=== PATIENT | male | born 1970 | race Caucasian/White ===

== ENCOUNTER → 2018-03-18 08:06 | Outpatient (REF) | payer OTHER, SELFPAY ==
[2018-03-18 09:41] LABS: Urine N gonorrhoeae NOT DETECTED
[2018-03-18 10:29] LABS: Urine Chlamydia NOT DETECTED
== END ==
LOC: LAB 08:06
PROVIDERS: PCP Family Medicine; Visit Provider Physician Assistant
DX: R52 Pain, unspecified (principal)
CPT/HCPCS: 87491; 87591

== ENCOUNTER → 2018-03-23 08:46 | Outpatient (CLI) | payer OTHER, SELFPAY ==
[2018-03-26 12:49] LABS: Fecal Immunochemical Test NOT DETECTED
== END ==
PROVIDERS: PCP Student in an Organized Health Care Education/Training Program; Visit Provider Nurse Practitioner Family
DX: Z12.11 Encounter for screening for malignant neoplasm of colon (principal)
CPT/HCPCS: 82274

== ENCOUNTER 2019-06-21 14:52 | Inpatient (IN) | payer OTHER, SELFPAY ==
[2019-06-21] VITALS (13 sets, daily range): BP systolic 84–134; BP diastolic 37–98; PULSE 65–167; RESP 10–40; TEMP 36.3–37; O2SAT 93–99; BMI 27.3; BMI 27.2
--- NOTE | 2019-06-21 15:02 | DI.RAD.S_ITS ---
PROCEDURE: XR CHEST 1V INDICATIONS: chest pain TECHNIQUE: One view of the chest was acquired. COMPARISON: None. FINDINGS: Surgical changes and devices: None. Lungs and pleura: The vascular markings within the perihilar regions are prominent with interstitial prominence, as well. No effusion or pneumothorax is evident. No definite area of pulmonary consolidation is appreciated. However, there may be mild consolidation at the medial right lung base. Mediastinum: Mediastinal contours appear normal. Heart size is enlarged. Bones and chest wall: No suspicious bony lesions. Overlying soft tissues appear unremarkable. IMPRESSION: 1. Cardiomegaly with associated vascular congestion/developing pulmonary edema. Please correlate clinically. 2. Density at the medial right lung base probably represents atelectasis or scarring. However, superimposed pneumonia may be present. Dictated by: James Lewis M.D. on 06/21/2019 at 14:20 Approved by: James Lewis M.D. on 06/21/2019 at 14:22
[2019-06-21] MEDS: SODIUM CHLORIDE 0.9% 1,000 ML 150 ML IV (15:12)
[2019-06-21] MEDS: ASPIRIN 81 MG CHEW TAB 324 MG PO (15:12)
[2019-06-21 15:14] LABS: Add Manual Diff / Slide Review NO; Basophils Absolute Auto 0 /uL (0-100); Basophils Percent Auto 0.5 % (0-2); Eosinophils Absolute Auto 100 /uL (0-450); Eosinophils Percent Auto 1.2 % (2-4); Hematocrit 47.4 % (41-53); Hemoglobin 16.1 g/dL (13.5-17.5); Lymphocytes Absolute Auto 2000 /uL (1100-4500); Lymphocytes Percent Auto 22.5 % (25-40); Mean Corpuscular HGB Conc 33.9 % (30-36); Mean Corpuscular Hemoglobin 30.6 PG (26-34); Mean Corpuscular Volume 90.3 fL (80-100); Monocytes Absolute Auto 600 /uL (0-900); Monocytes Percent Auto 6.4 % (3-14); Neutrophils Absolute Auto 6200 /uL (1500-7000); Neutrophils Percent Auto 69.4 % (50-75); Platelet Count 203 X10^3/uL (150-400); Red Blood Cell Count 5.25 X10^6/uL (4.5-5.9); Red Cell Distribution Width 13.4 % (11.6-14.8)
[2019-06-21] MEDS: dilTIAZem 5 MG/ML SDV 10 MG IV (15:14)
[2019-06-21 15:28] LABS: Alanine Aminotransferase 50 IU/L (<50); Albumin 4.6 g/dL (3.5-5.0); Albumin Globulin Ratio 1.9 (1.0-2.8); Alkaline Phosphatase 75 U/L (38-126); Aspartate Aminotransferase 35 IU/L (17-59); BUN Creatinine Ratio 16.7 (6-22); Blood Urea Nitrogen 20 mg/dL (9-20); Calcium 9.5 mg/dL (8.4-10.2); Carbon Dioxide 26 mmol/L (22-32); Chloride 105 mmol/L (98-107); Creatine Kinase 72 U/L (55-170); Estimated Glomerular Filt Rate > 60.0 mL/min (>60); Globulin 2.4 g/dL (1.7-4.1); Glucose 101 mg/dL (70-100); HEMOLYSIS < 15 (0-50); Lipase 76 U/L (23-300); Potassium 4.1 mmol/L (3.4-5.1); Sodium 140 mmol/L (137-145)
[2019-06-21 15:30] LABS: D Dimer 618 ng/mL (<230)
[2019-06-21 15:33] LABS: B Type Natriuretic Peptide 253 (<100)
--- NOTE | 2019-06-21 15:35 | DI.CT.S_ITS ---
PROCEDURE: CT ANGIO CHEST PE PROTOCOL INDICATIONS: CP, SOB, critical DDimer TECHNIQUE: After the administration of intravenous contrast, 2 mm thick sections acquired from the pulmonary apices to the posterior costophrenic angles. 3-dimensional maximum intensity projection (MIP) coronal and sagittal reformats were then acquired through the thorax. For radiation dose reduction, the following was used: automated exposure control, adjustment of mA and/or kV according to patient size. COMPARISON: [facility], CR, XR CHEST 1V, 06/21/2019, 15:08. FINDINGS: Image quality: Diagnostic. Pulmonary arteries: Pulmonary arteries are normal in size, and demonstrate no intraluminal filling defects to suggest central pulmonary embolism. Lungs and pleura: Small moderate-sized bilateral pleural effusions are identified (right greater than left). Mild associated bibasilar atelectasis is identified. No large area of pulmonary consolidation is evident. There is mild atelectasis evident within the medial aspect of the right middle lobe adjacent to the right heart border. There also is probable atelectasis within the right infrahilar region. Interlobular septal prominence is identified. No lung masses are present. No definite pulmonary nodules are identified. Mediastinum: Heart size is mildly enlarged, without pericardial effusion. Note is made of contrast refluxing into the inferior vena cava and subsequently the hepatic veins. No mediastinal or hilar adenopathy. Thoracic aorta is normal in caliber and enhancement. Esophagus is normal in caliber, without hiatal hernia. Bones and chest wall: No suspicious bony lesions. Ribs and thoracic spine appear intact throughout. Thyroid gland is not enlarged or adequately evaluated. No axillary or supraclavicular adenopathy. Abdomen: The included portions of the upper abdomen demonstrates that the wall of the gallbladder to be moderately thickened, which is not well characterized on this study. A small amount of upper abdominal ascites is noted. Otherwise, the included portions of the upper abdomen are unremarkable. IMPRESSION: 1. No evidence of pulmonary emboli. 2. Cardiomegaly with associated vascular congestion and small to moderate size bilateral pleural effusions is most suggestive of congestive heart failure/pulmonary edema. Please correlate clinically. 3. Gallbladder wall thickening probably is related to heart failure. Chronic liver disease or acute cholecystitis could also have this appearance. Please correlate clinically. 4. Mild upper abdominal ascites is of uncertain origin. Dictated by: James Lewis M.D. on 06/21/2019 at 15:02 Approved by: James Lewis M.D. on 06/21/2019 at 15:06
[2019-06-21 16:01] LABS: Troponin I 0.201 ng/mL (0.01-0.034)
--- NOTE | 2019-06-21 16:36 | ED.ARRPALP ---
HPI - Arrhythmia/Palpitations General Chief Complaint: Arrhythmia/Palpitations Stated Complaint: fatigue shortness of breath and he has A fib Time Seen by Provider: 06/21/19 14:55 Source: patient Mode of arrival: Ambulatory Limitations: no limitations History of Present Illness HPI narrative: 48-year-old male nonsmoker presents from the walk-in clinic for evaluation of 2-3 weeks of increasing shortness of breath and palpitations. They found him to be in a rapid AFib at which point he was sent here. He denies any history of the same. His shortness of breath is worse with exertion and improves with rest. He is not dizzy nor weak or lightheaded. He denies any nausea, vomiting or diarrhea. He denies any change in diet or medications. MD complaint: rapid heart beat, skipped beats, irregular heart beat and atrial fibrillation Onset (ago): week(s) Duration: constant Severity: moderate Associated symptoms: shortness of breath Related Data Home Medications Medication Instructions Recorded Confirmed No Known Home Medications 06/21/19 06/21/19 Allergies Allergy/AdvReac Type Severity Reaction Status Date / Time No Known Drug Allergies Allergy Verified 06/21/19 15:07 Review of Systems Constitutional Constitutional: Denies chills, Denies fatigue, Denies fever(s), Denies frequent falls, Denies lethargy and Denies weakness Eyes Eyes: Denies change in vision, Denies eye discharge, Denies irritation and Denies loss of vision ENT Ears, Nose, Mouth, and Throat: Denies change in voice, Denies dizziness, Denies neck pain, Denies sore throat and Denies throat swelling Cardiovascular Cardiovascular: Reports irregular heart rhythm, Denies lightheadedness, Reports palpitations, Reports dyspnea, Reports dyspnea on exertion and Denies orthopnea Respiratory Respiratory: Denies cough, Reports dyspnea, Reports dyspnea on exertion and Denies wheezing Gastrointestinal Gastrointestinal: Denies abdominal pain, Denies change in bowel habits, Denies diarrhea, Denies nausea and Denies vomiting Genitourinary Genitourinary: Denies hematuria, Denies flank pain, Denies urinary incontinence and Denies urinary urgency Musculoskeletal Musculoskeletal: Denies back pain, Denies muscle weakness, Denies neck pain, Denies numbness and Denies tingling Integumentary/Breasts Skin/Breast: Denies pruritus, Denies erythema, Denies rash and Denies wounds Neurologic Neurologic: Denies behavioral changes, Denies confusion, Denies dizziness, Denies frequent falls, Denies loss of vision, Denies numbness, Denies tingling and Denies weakness Psychiatric Psychiatric: Denies anxiety, Denies behavioral changes, Denies confusion, Denies depression, Denies homicidal ideation and Denies suicidal ideation Endocrine Endocrine: Denies fatigue, Denies flushing and Reports palpitations Hematologic/Lymphatic Hematologic/Lymphatic: Denies easy bruising Allergic/Immunologic Allergic/Immunologic: Denies urticaria, Denies throat swelling and Denies wheezing Patient History Social History Smoking Status: Never smoker second hand exposure: No alcohol intake: never substance use type: does not use Smoking Status: Never smoker Exam Narrative Exam Narrative: GENERAL: [40] year old patient appears stated age. Well-nourished, well-developed patient, in mild distress. HEAD: Atraumatic. Normocephalic. EYES: Pupils equal round and reactive. Extraocular motions intact. No scleral icterus. No injection or drainage. ENT: Nose without bleeding, purulent drainage. Throat without erythema, tonsillar hypertrophy or exudate. Airway patent. NECK: Trachea midline. Non tender CARDIOVASCULAR: Tachycardic and irregular RESPIRATORY: Faint crackles bilateral bases GASTROINTESTINAL: Abdomen soft, non-tender, nondistended. EXTREMITIES: No edema or joint tenderness. BACK: Nontender without deformity or crepitance. No flank tenderness. NEURO: AOx3. SKIN: No rash or erythema of visible areas Initial Vital Signs Initial Vital Signs: Vital Signs Temperature 98.6 F 06/21/19 15:02 Pulse Rate 153 H 06/21/19 15:02 Respiratory Rate 34 H 06/21/19 15:02 Blood Pressure 121/98 H 06/21/19 15:02 Pulse Oximetry 99 06/21/19 15:02 Course Course Course Narrative: Case discussed with cardiology. We sure the opinion that elevated troponin is likely a consequence of demand ischemia. Orders Ordered: ED Orders 06/21/19 15:02 XR chest 1V Stat 06/21/19 15:06 B Type Natriuretic Peptide Stat Complete Blood Count AUTO DIFF Stat Comprehensive Metabolic Panel Stat D Dimer Stat Lipase Stat Troponin & CK Cardiac Panel Stat 06/21/19 15:35 CT angio chest PE protocol Stat Sodium Chloride (Normal Saline 0.9%) 1,000 mls @ 150 mls/hr IV CONT IDALIA Last Infusion: 06/21/19 17:58 Dose: 0 mls/hr Documented by: Admin: 06/21/19 15:12 Dose: 150 mls/hr Documented by: LAUREN Discontinued Medications Aspirin (Aspirin Chew) 324 mg PO NOW ONE Stop: 06/21/19 15:02 Last Admin: 06/21/19 15:12 Dose: 324 mg Documented by: LAUREN Diltiazem HCl (Cardizem) 10 mg IV NOW ONE Stop: 06/21/19 15:08 Last Admin: 06/21/19 15:14 Dose: 10 mg Documented by: LAUREN Lidocaine HCl 6.1 ml/ Sodium (Chloride) 56.1 mls @ 336.6 mls/hr IV NOW ONE Stop: 06/21/19 16:40 Last Admin: 06/21/19 17:05 Dose: Not Given Documented by: KBROTEM Metoprolol Succinate (Toprol Xl) 25 mg PO NOW ONE Stop: 06/21/19 16:38 Last Admin: 06/21/19 16:51 Dose: 25 mg Documented by: FUAD Vital Signs Vital signs: Vital Signs - 8 hr 06/21/19 15:02 06/21/19 15:14 06/21/19 15:53 Temperature 98.6 F Pulse Rate 153 H 167 H 65 Respiratory Rate 34 H 10 L Blood Pressure 121/98 H 121/98 H Blood Pressure [Right Arm] 134/90 Pulse Oximetry 99 95 06/21/19 16:37 06/21/19 16:51 Temperature Pulse Rate 152 H 161 H Respiratory Rate 22 Blood Pressure 121/89 Blood Pressure [Right Arm] 128/91 H Pulse Oximetry 95 MDM - Arrhythmia/Palpitations Lab Data Result diagrams: 06/21/19 15:06 06/21/19 15:06 Labs: Lab Results 06/21/19 06/21/19 06/21/19 Range/Units 15:06 15:06 15:06 WBC 9.0 (4.5-11.0) X10^3/uL RBC 5.25 (4.5-5.9) X10^6/uL Hgb 16.1 (13.5-17.5) g/dL Hct 47.4 (41-53) % MCV 90.3 (80-100) fL MCH 30.6 (26-34) PG MCHC 33.9 (30-36) % RDW 13.4 (11.6-14.8) % Plt Count 203 (150-400) X10^3/uL Neut % (Auto) 69.4 (50-75) % Lymph % (Auto) 22.5 L (25-40) % [place] % (Auto) 6.4 (3-14) % Eos % (Auto) 1.2 L (2-4) % Baso % (Auto) 0.5 (0-2) % Neut # (Auto) 6200 (5771-2960) /uL Lymph # (Auto) 2000 (7372-5995) /uL [place] # (Auto) 600 (0-900) /uL Eos # (Auto) 100 (0-450) /uL Baso # (Auto) 0 (0-100) /uL D-Dimer 618 H (<230) ng/mL Sodium (137-145) mmol/L Potassium (3.4-5.1) mmol/L Chloride (98-107) mmol/L Carbon Dioxide (22-32) mmol/L BUN (9-20) mg/dL Creatinine (0.66-1.25) mg/dL Estimated GFR (>60) mL/min BUN/Creatinine Ratio (6-22) Glucose (70-100) mg/dL Calcium (8.4-10.2) mg/dL Total Bilirubin (0.2-1.3) mg/dL AST (17-59) IU/L ALT (<50) IU/L Alkaline Phosphatase (38-126) U/L Total Creatine Kinase (55-170) U/L CK-MB (CK-2) CK-MB (CK-2) Rel Index Troponin I (0.01-0.034) ng/mL B-Natriuretic Peptide 253 H (<100) Total Protein (6.3-8.2) g/dL Albumin (3.5-5.0) g/dL Globulin (1.7-4.1) g/dL Albumin/Globulin Ratio (1.0-2.8) Lipase (23-300) U/L 06/21/19 Range/Units 15:06 WBC (4.5-11.0) X10^3/uL RBC (4.5-5.9) X10^6/uL Hgb (13.5-17.5) g/dL Hct (41-53) % MCV (80-100) fL MCH (26-34) PG MCHC (30-36) % RDW (11.6-14.8) % Plt Count (150-400) X10^3/uL Neut % (Auto) (50-75) % Lymph % (Auto) (25-40) % [place] % (Auto) (3-14) % Eos % (Auto) (2-4) % Baso % (Auto) (0-2) % Neut # (Auto) (4168-7880) /uL Lymph # (Auto) (0449-5168) /uL [place] # (Auto) (0-900) /uL Eos # (Auto) (0-450) /uL Baso # (Auto) (0-100) /uL D-Dimer (<230) ng/mL Sodium 140 (137-145) mmol/L Potassium 4.1 (3.4-5.1) mmol/L Chloride 105 (98-107) mmol/L Carbon Dioxide 26 (22-32) mmol/L BUN 20 (9-20) mg/dL Creatinine 1.20 (0.66-1.25) mg/dL Estimated GFR > 60.0 (>60) mL/min BUN/Creatinine Ratio 16.7 (6-22) Glucose 101 H (70-100) mg/dL Calcium 9.5 (8.4-10.2) mg/dL Total Bilirubin 1.0 (0.2-1.3) mg/dL AST 35 (17-59) IU/L ALT 50 H (<50) IU/L Alkaline Phosphatase 75 (38-126) U/L Total Creatine Kinase 72 (55-170) U/L CK-MB (CK-2) TNP CK-MB (CK-2) Rel Index TNP Troponin I 0.201 H* (0.01-0.034) ng/mL B-Natriuretic Peptide (<100) Total Protein 7.0 (6.3-8.2) g/dL Albumin 4.6 (3.5-5.0) g/dL Globulin 2.4 (1.7-4.1) g/dL Albumin/Globulin Ratio 1.9 (1.0-2.8) Lipase 76 (23-300) U/L Imaging Data CT scan - chest: Radiologist's Impresson: Chart [facility] Diagn[facility] DATE TYPE STATUS AUTHOR Hx 06/21/19 15:35 Joshua,James 06/21/19 15:02 James Lewis Robert L Jr 48, M0 1970 ADM [place], Main ED R04 172.72cm 81.3kg BMI: 27.3kg/m? Search Chart No Data to Display ONSET 01/13/16 01/13/16 01/13/16 01/13/16 07/06/16 Today 18:03 Castro Bowers Jr 48 M 1970 [place] [address] CT Scan Report Signed Patient: Castor Bowers Jr#: [id number] : 1970Acct:[id number] Age/Sex: 48 / MDate of Service: 06/21/19 Loc: ED Accession Number: [id number] Procedure: CT angio chest PE protocol Ordering Provider: Satish Garber D.O. PROCEDURE: CT ANGIO CHEST PE PROTOCOL INDICATIONS: CP, SOB, critical DDimer TECHNIQUE: After the administration of intravenous contrast, 2 mm thick sections acquired from the pulmonary apices to the posterior costophrenic angles. 3-dimensional maximum intensity projection (MIP) coronal and sagittal reformats were then acquired through the thorax. For radiation dose reduction, the following was used: automated exposure control, adjustment of mA and/or kV according to patient size. COMPARISON: [facility], CR, XR CHEST 1V, 06/21/2019, 15:08. FINDINGS: Image quality: Diagnostic. Pulmonary arteries: Pulmonary arteries are normal in size, and demonstrate no intraluminal filling defects to suggest central pulmonary embolism. Lungs and pleura: Small moderate-sized bilateral pleural effusions are identified (right greater than left). Mild associated bibasilar atelectasis is identified. No large area of pulmonary consolidation is evident. There is mild atelectasis evident within the medial aspect of the right middle lobe adjacent to the right heart border. There also is probable atelectasis within the right infrahilar region. Interlobular septal prominence is identified. No lung masses are present. No definite pulmonary nodules are identified. Mediastinum: Heart size is mildly enlarged, without pericardial effusion. Note is made of contrast refluxing into the inferior vena cava and subsequently the hepatic veins. No mediastinal or hilar adenopathy. Thoracic aorta is normal in caliber and enhancement. Esophagus is normal in caliber, without hiatal hernia. Bones and chest wall: No suspicious bony lesions. Ribs and thoracic spine appear intact throughout. Thyroid gland is not enlarged or adequately evaluated. No axillary or supraclavicular adenopathy. Abdomen: The included portions of the upper abdomen demonstrates that the wall of the gallbladder to be moderately thickened, which is not well characterized on this study. A small amount of upper abdominal ascites is noted. Otherwise, the included portions of the upper abdomen are unremarkable. IMPRESSION: 1. No evidence of pulmonary emboli. 2. Cardiomegaly with associated vascular congestion and small to moderate size bilateral pleural effusions is most suggestive of congestive heart failure/pulmonary edema. Please correlate clinically. 3. Gallbladder wall thickening probably is related to heart failure. Chronic liver disease or acute cholecystitis could also have this appearance. Please correlate clinically. 4. Mild upper abdominal ascites is of uncertain origin. Dictated by: James Lewis M.D. on 06/21/2019 at 15:02 MDM Narrative Medical decision making narrative: Patient has had palpitations and shortness breath for at least 3 weeks. It turns out he is in a rapid AFib and presumably has been for that duration of time. He is not a candidate for electrocardioversion as he is not in extremities, has no chest pain, ischemic changes on the EKG and duration of symptoms is too long. Initially he was given Cardizem and had a very minimal change to his rate. With the elevated D-dimer patient had a CT angiogram which notes no PE but does show some fluids and suggestion of pulmonary edema. For this reason cardiology was contacted prior to administration of a beta-kristen. They recommended either beta-kristen or amiodarone. I have contacted the hospitalist whom would prefer beta-kristen at this point time. Patient will be hospitalized for further stabilization and evaluation of his condition Discharge Plan Departure Patient Disposition: Admitted As Inpatient Clinical Impression: Atrial fibrillation with rapid ventricular response Admit Date/Time: 06/21/19 16:58 Admit Provider: Karen Jarrett
[2019-06-21] MEDS: METOPROLOL ER 25 MG TABLET PO (16:51)
--- NOTE | 2019-06-21 17:33 | PC.NURSE ---
report called to Adelia ICU nurse, pt ready for transport
--- NOTE | 2019-06-21 18:23 | P.HP_ITS ---
History of Present Illness History of Present Illness Date Patient Seen: 06/21/19 Chief complaint: fatigue shortness of breath and he has AFIB Narrative: The patient is a 48-year-old male who presents with chest pain, palpitations, shortness of breath. Patient states the symptoms started about 3 weeks ago. He describes chest pressure, palpitations, and shortness of breath both at rest with activity and when lying flat. In addition he has noted increased abdominal girth. He denies any lower extremity edema. He describes pressure in his chest but no radiation. He has had no fever chills or cough. He has had no prior history of atrial arrhythmia. Patient was found to be in rapid atrial fibrillation. He was given 1 dose of diltiazem with minimal response. He was then given 25 mg of metoprolol and plans were made for him to be admitted to the hospital. The patient did have a CT angio given his new onset atrial fibrillation. CT angio showed bilateral small pleural effusions, cardiomegaly, but no evidence of pulmonary embolus. Patient was found to have an elevated troponin at 0.21. The case was discussed with cardiology Dr. Garcia who agreed this was likely rate related. The patient's EKG showed atrial fibrillation with minimal ST T wave abnormalities. Patient is admitted to the hospital for definitive medical treatment. 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 (01/13/16) Gastroesophageal reflux disease without esophagitis (01/13/16) Family & Social History Family History (Updated 06/21/19 @ 18:30 by Karen Jarrett MD) Grandfather Myocardial infarction Father Myocardial infarction Safety & Behavioral: Feels Safe in Current Yes Environment Been Physically Hurt or No Threatened By a Person Tobacco & Substance use: Smoking Status Never smoker alcohol intake never Meds Home Medications and Allergies Home Medications Medication Instructions Recorded Confirmed Type No Known Home Medications 06/21/19 06/21/19 History Allergies Allergy/AdvReac Type Severity Reaction Status Date / Time No Known Drug Allergies Allergy Verified 06/21/19 15:07 Review of Systems Review of Systems ROS Unobtainable: All systems reviewed & are unremarkable except as noted in HPI and below Exam Vital Signs (past 8 hours): - 06/21/19 15:02 06/21/19 15:14 06/21/19 15:53 Temperature 98.6 F Pulse Rate 153 H 167 H 65 Respiratory Rate 34 H 10 L Blood Pressure 121/98 H 121/98 H Blood Pressure [Right Arm] 134/90 Pulse Oximetry 99 95 06/21/19 16:37 06/21/19 16:51 06/21/19 17:34 Temperature Pulse Rate 152 H 161 H 149 H Respiratory Rate 22 36 H Blood Pressure 121/89 Blood Pressure [Right Arm] 128/91 H 107/91 H Pulse Oximetry 95 95 06/21/19 17:59 06/21/19 18:03 Temperature 97.3 F L Pulse Rate 152 H 136 H Respiratory Rate 35 H Blood Pressure 107/91 H 133/81 Blood Pressure [Right Arm] Pulse Oximetry 93 Oxygen Delivery Method Room Air Narrative Exam Narrative: Pleasant gentleman resting comfortably in no obvious distress HEENT: Normocephalic atraumatic, extraocular muscles are intact, oropharynx is clear, neck is supple, there is no adenopathy, no appreciable thyromegaly Lungs: Decreased breath sounds with scattered bibasilar crackles Cardiac exam: Tachycardic, irregularly irregular normal S1-S2 Abdomen: Mild distention, no hepatosplenomegaly, no board-like rigidity, no palpable mass Extremities: No edema Skin exam: No lesion Neuro exam: Nonfocal Psychiatric exam: Patient is awake alert and appropriate speech is clear, no hallucinations or delusions Objective Labs Result Diagrams: 06/21/19 15:06 06/21/19 15:06 Labs: Laboratory Results - last 24 hr 06/21/19 06/21/19 06/21/19 15:06 15:06 15:06 WBC 9.0 RBC 5.25 Hgb 16.1 Hct 47.4 MCV 90.3 MCH 30.6 MCHC 33.9 RDW 13.4 Plt Count 203 Neut % (Auto) 69.4 Lymph % (Auto) 22.5 L [place] % (Auto) 6.4 Eos % (Auto) 1.2 L Baso % (Auto) 0.5 Neut # (Auto) 6200 Lymph # (Auto) 2000 [place] # (Auto) 600 Eos # (Auto) 100 Baso # (Auto) 0 D-Dimer 618 H Sodium Potassium Chloride Carbon Dioxide BUN Creatinine Estimated GFR BUN/Creatinine Ratio Glucose Calcium Total Bilirubin AST ALT Alkaline Phosphatase Total Creatine Kinase CK-MB (CK-2) CK-MB (CK-2) Rel Index Troponin I B-Natriuretic Peptide 253 H Total Protein Albumin Globulin Albumin/Globulin Ratio Lipase 06/21/19 15:06 WBC RBC Hgb Hct MCV MCH MCHC RDW Plt Count Neut % (Auto) Lymph % (Auto) [place] % (Auto) Eos % (Auto) Baso % (Auto) Neut # (Auto) Lymph # (Auto) [place] # (Auto) Eos # (Auto) Baso # (Auto) D-Dimer Sodium 140 Potassium 4.1 Chloride 105 Carbon Dioxide 26 BUN 20 Creatinine 1.20 Estimated GFR > 60.0 BUN/Creatinine Ratio 16.7 Glucose 101 H Calcium 9.5 Total Bilirubin 1.0 AST 35 ALT 50 H Alkaline Phosphatase 75 Total Creatine Kinase 72 CK-MB (CK-2) TNP CK-MB (CK-2) Rel Index TNP Troponin I 0.201 H* B-Natriuretic Peptide Total Protein 7.0 Albumin 4.6 Globulin 2.4 Albumin/Globulin Ratio 1.9 Lipase 76 Assessment & Plan Assessment & Plan narrative: Impression 1. 48-year-old male admitted to the hospital with abrupt onset of atrial fibrillation with rapid ventricular response rate -patient has likely been symptomatic for 3 weeks and therefore not a candidate for cardioversion -continue metoprolol 25 Q 6 for rate control -will add Lopressor as needed -continue aspirin at this time -Lovenox for DVT prophylaxis -cardiac echo to evaluate LV function -will check TSH -CHADS2 Vasc score 0-1 depending on whether the patient has heart failure will defer anticoagulation at this time 2. Cardiomegaly, with bilateral effusion, question congestive heart failure etiology unclear -patient may have rate-related cardiomyopathy -will obtain echocardiogram in the morning -will obtain BNP -will Hep-Lock IV fluids -consider Lasix depending on echo and lab results in the morning 3. Elevated troponin I of 0.20 -no clinical symptoms to suggest ischemia -suspect rate related troponin leak -no EKG evidence of ischemia -will continue to trend 4. GERD -patient is asymptomatic will monitor closely Patient is a full code will note that his record accordingly
[2019-06-21] MEDS: METOPROLOL TARTRATE 5 MG/5 ML INJ IV ×3 (19:39→21:03)
[2019-06-21 21:06] LABS: Thyroid Stimulating Hormone 1.59 uIU/mL (0.47-4.68)
--- NOTE | 2019-06-21 23:00 | PC.NURSE ---
Addendum entered by Adelia Olivera R.N. 06/21/19 23:04: Patient is still in AFIB. Original Note: Admitted through ER after going to [facility] for SOB/weakness x2-3 weeks. Patient arrived on unit alert and oriented, skin intact, room air, HR 150's. Patient complained of SOB still on arrival but said it's no worse than it has been the weeks prior. 3x IV Metoprolol was given. BP dropped between 2nd and 3rd dose to 84/56. After 30min BP was up to 110's/60's and 3rd dose was given. HR now ranges from 100-125 and BP is 124/75. Patient is asleep. Call light within reach.
[2019-06-22] VITALS (8 sets, daily range): BP systolic 105–125; BP diastolic 43–78; PULSE 109–140; RESP 18–30; TEMP 36.7–36.8; O2SAT 87–99
[2019-06-22] MEDS: METOPROLOL IR 25 MG TABLET PO ×2 (00:28→06:24)
--- NOTE | 2019-06-22 04:54 | PC.NURSE ---
Patient continues in a rapid Afib with rate between 105-125. Scheduled PO metroprolol per orders Q6H. BP stable. Pt denies CP. Reports SOB markedly improved since admission. Sp02 was 87% on RA while resting - placed on 2LNC for sleep. Patient states that sleep apnea sounds familiar, I think I've been told that before.
[2019-06-22 05:24] LABS: Carbon Dioxide 26 mmol/L (22-32); Chloride 106 mmol/L (98-107); HEMOLYSIS < 15 (0-50); Potassium 4.8 mmol/L (3.4-5.1); Sodium 139 mmol/L (137-145)
[2019-06-22 05:42] LABS: Troponin I 0.209 ng/mL (0.01-0.034)
[2019-06-22 08:21] LABS: Magnesium 2.4 mg/dL (1.6-2.3)
[2019-06-22] MEDS: METOPROLOL ER 50 MG TABLET PO (08:33)
[2019-06-22] MEDS: ASPIRIN EC 81 MG TABLET PO (08:33)
--- NOTE | 2019-06-22 10:06 | PC.NURSE ---
Addendum entered by Shanti Kidd R.N. 06/22/19 16:09: 1610-Unable to get report to [facility], call x5 with no response at present. Transport to get Pt @ 1600. Addendum entered by Shanti Kidd R.N. 06/22/19 15:45: 1544-Call into [facility], Sandra RN will call back shortly for report, updated on transport time expected 1600 from [place]. Addendum entered by Shanti Kidd R.N. 06/22/19 15:36: 1500-Heparin gtt and bolus given per [place], transfer pending to [facility] with [place] as accepting, Unable to get RN after multiple attempts to reach by phone. Addendum entered by Shanti Kidd R.N. 06/22/19 15:33: Pt has remained Afib RVR, rate 120-130s. a/c tech reports significant EF 15%. Pt made NPO for possible transfer for cardiac work up. Digoxin and PO Metoprolol given. Original Note: Am shift Pt is A/o x4, denies pain. Denies SOB, Improved since I got admitted Spo2 95% RA, used 2L overnight for likely sleep apnea. Sitting up in chair for breakfast. Am meds given and reviewed POC for day. Await echo, potential d/c later today, pending results. VSS.
[2019-06-22 12:16] LABS: Creatine Kinase 38 U/L (55-170)
[2019-06-22] MEDS: DIGOXIN 500 MCG/2 ML AMPUL 250 MCG IV (12:16)
--- NOTE | 2019-06-22 12:16 | P.DS_ITS ---
History of Present Illness History of Present Illness Date Patient Seen: 06/21/19 Chief complaint: fatigue shortness of breath and he has AFIB Narrative: Written by Dr. Jarrett: The patient is a 48-year-old male who presents with chest pain, palpitations, shortness of breath. Patient states the symptoms started about 3 weeks ago. He describes chest pressure, palpitations, and shortness of breath both at rest with activity and when lying flat. In addition he has noted increased abdominal girth. He denies any lower extremity edema. He describes pressure in his chest but no radiation. He has had no fever chills or cough. He has had no prior history of atrial arrhythmia. Patient was found to be in rapid atrial fibrillation. He was given 1 dose of diltiazem with minimal response. He was then given 25 mg of metoprolol and plans were made for him to be admitted to the hospital. The patient did have a CT angio given his new onset atrial fibrillation. CT angio showed bilateral small pleural effusions, cardiomegaly, but no evidence of pulmonary embolus. Patient was found to have an elevated troponin at 0.21. The case was discussed with cardiology Dr. Garcia who agreed this was likely rate related. The patient's EKG showed atrial fibrillation with minimal ST T wave abnormalities. Patient is admitted to the hospital for definitive medical treatment. Discharge Providers Provider Date of admission: 06/21/19 16:58 Discharge Date: 06/22/19 Primary care physician: Diogenes Beal MD Consults: 06/22/19 03:09 Consult to Respiratory Therapy Evaluate & Treat Comment: Physician Instructions: Evaluate and treat Discharge provider: Teresa Leung DO Summary Hospital Course Hospital Course: 1. Newly diagnosed atrial fibrillation with RVR, present on admission. Active. -Patient presented with chest pain/pressure, palpitations and shortness of breath x3 weeks. -EKG demonstrated atrial fibrillation with RVR. No EKG evidence of acute ischemic changes such as ST elevation or depression. -Received diltiazem 10 mg IV x1 in ED without significant change in heart rate. Received metoprolol 5 mg IV x1 in ED with improvement in heart rate. Continued metoprolol tartrate 50 mg every 6 hours for rate control. -TSH within normal limits at 1.59. Electrolytes within normal limits with potassium 4.8 and magnesium 2.4. Goal K > 4.0 and Mg > 2.0. -CTA chest demonstrated no evidence of pulmonary emboli, cardiomegaly with associated vascular congestion and small to moderate size bilateral pleural effusions is most suggestive of congestive heart failure/pulmonary edema, gallbladder wall thickening probably is related to heart failure, mild upper abdominal ascites is of uncertain origin. -[id number] score 1 low risk for VTE. Received aspirin 324 mg x1 in ED. Continued aspirin 81 mg daily. Started cardiac heparin gtt. -Echocardiogram demonstrated LV is mildly dilated and systolic function is severely reducedwith EF 15-20%, severe global hypokinesis of the left ventricle, diastolic function could not be accurately assessed due to atrial fibrillation, RV is normal size and systolic function is moderately reduced, RVSP is estimated to be 41 mmHg based on an estimated right atrial pressure of 15 mm Hg, left atrium is moderately dilated, right atrium is mildly dilated, mild to moderate mitral regurgitation, mild to moderate tricuspid regurgitation, no other significant valvular heart disease, aortic root is normal size, and moderately large-sized bilateral pleural effusions noted. -Discussed case with on-call natural history collections curator for [place] Dr. Seymour and for [facility] Dr. Zambrano who recommended continue to control rate, give digoxin 250 mcg x1 and transfer for higher level of care for MARTÍN and cardioversion. 2. Newly diagnosed systolic congestive heart failure with EF 15-20%, present on admission. Active. 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 -CTA chest demonstrated no evidence of pulmonary emboli, cardiomegaly with as sociated vascular congestion and small to moderate size bilateral pleural effusions is most suggestive of congestive heart failure/pulmonary edema, gallbladder wall thickening probably is related to heart failure, mild upper abdominal ascites is of uncertain origin. -BNP 253. -Echocardiogram demonstrated LV is mildly dilated and systolic function is severely reducedwith EF 15-20%, severe global hypokinesis of the left ventricle, diastolic function could not be accurately assessed due to atrial fibrillation, RV is normal size and systolic function is moderately reduced, RVSP is estimated to be 41 mmHg based on an estimated right atrial pressure of 15 mm Hg, left atrium is moderately dilated, right atrium is mildly dilated, mild to moderate mitral regurgitation, mild to moderate tricuspid regurgitation, no other significant valvular heart disease, aortic root is normal size, and moderately large-sized bilateral pleural effusions noted. -Continued to monitor strict I&O and daily weights. 3. Acute elevated troponin, present on admission. Active. -Secondary to demand ischemia/troponin leak from RVR. -No EKG evidence of pathological Q-waves or acute ischemic changes such as ST elevation or depression. -Initial troponin 0.201. Repeat troponin peaked at 0.209 and then trended down to 0.187. 4. GERD, chronic, present on admission. Stable. -Patient is asymptomatic and continue to monitor closely. 5. Probable JINNY, chronic, present on admission. Stable. -Recommended outpatient sleep study to assess for JINNY and treatment with CPAP if present. Exam Vital Signs (past 8 hours): - 06/22/19 08:33 06/22/19 10:11 06/22/19 10:51 Temperature 98.3 F Pulse Rate 112 H 121 H 140 H Respiratory Rate 30 H 24 Blood Pressure 107/43 L 125/59 L 113/75 Pulse Oximetry 95 94 Oxygen Delivery Method Room Air Oxygen Flow Rate 2 Narrative Exam Narrative: General: Middle-aged gentleman sitting in bed and in no acute distress, well- developed, well-nourished, mildly anxious but appropriately interactive. HEENT: Normocephalic, atraumatic. External ears without defect. Pupils equal, round, and reactive to light. Anicteric sclerae, moist conjunctivae, and no lid lag. Neck: Supple with full range of motion. No jugular venous distension. No bruits. No lymphadenopathy or thyromegaly. Cardiovascular: Irregularly irregular without murmurs, rubs, or gallops appreciated. Pulmonary: Clear to auscultation bilaterally without crackles, wheezes, or rhonchi. Normal respiratory effort with no use of accessory muscles. Abdomen: Soft, bowel sounds present, nontender, nondistended. No hepatosp lenomegaly or masses appreciated. Extremities: No clubbing, cyanosis, or edema. Skin: Normal temperature, turgor, and texture; no rash, ulcers, or subcutaneous nodules appreciated. Neurological: Cranial nerves grossly intact. Psychiatric: Mildly anxious mood and normal affect. Alert and oriented to person, place, and time. Objective Labs Result Diagrams: 06/21/19 15:06 06/22/19 04:40 Labs: Laboratory Results - last 24 hr 06/21/19 06/21/19 06/21/19 15:06 15:06 15:06 WBC 9.0 RBC 5.25 Hgb 16.1 Hct 47.4 MCV 90.3 MCH 30.6 MCHC 33.9 RDW 13.4 Plt Count 203 Neut % (Auto) 69.4 Lymph % (Auto) 22.5 L [place] % (Auto) 6.4 Eos % (Auto) 1.2 L Baso % (Auto) 0.5 Neut # (Auto) 6200 Lymph # (Auto) 2000 [place] # (Auto) 600 Eos # (Auto) 100 Baso # (Auto) 0 D-Dimer 618 H Sodium Potassium Chloride Carbon Dioxide BUN Creatinine Estimated GFR BUN/Creatinine Ratio Glucose Calcium Magnesium Total Bilirubin AST ALT Alkaline Phosphatase Total Creatine Kinase CK-MB (CK-2) CK-MB (CK-2) Rel Index Troponin I B-Natriuretic Peptide 253 H Total Protein Albumin Globulin Albumin/Globulin Ratio Lipase TSH Nasal Screen MRSA (PCR) 06/21/19 06/21/19 06/21/19 15:06 15:06 20:00 WBC RBC Hgb Hct MCV MCH MCHC RDW Plt Count Neut % (Auto) Lymph % (Auto) [place] % (Auto) Eos % (Auto) Baso % (Auto) Neut # (Auto) Lymph # (Auto) [place] # (Auto) Eos # (Auto) Baso # (Auto) D-Dimer Sodium 140 Potassium 4.1 Chloride 105 Carbon Dioxide 26 BUN 20 Creatinine 1.20 Estimated GFR > 60.0 BUN/Creatinine Ratio 16.7 Glucose 101 H Calcium 9.5 Magnesium Total Bilirubin 1.0 AST 35 ALT 50 H Alkaline Phosphatase 75 Total Creatine Kinase 72 CK-MB (CK-2) TNP CK-MB (CK-2) Rel Index TNP Troponin I 0.201 H* B-Natriuretic Peptide Total Protein 7.0 Albumin 4.6 Globulin 2.4 Albumin/Globulin Ratio 1.9 Lipase 76 TSH 1.59 Nasal Screen MRSA (PCR) Negative for mrsa 06/22/19 06/22/19 04:40 04:40 WBC RBC Hgb Hct MCV MCH MCHC RDW Plt Count Neut % (Auto) Lymph % (Auto) [place] % (Auto) Eos % (Auto) Baso % (Auto) Neut # (Auto) Lymph # (Auto) [place] # (Auto) Eos # (Auto) Baso # (Auto) D-Dimer Sodium 139 Potassium 4.8 Chloride 106 Carbon Dioxide 26 BUN Creatinine Estimated GFR BUN/Creatinine Ratio Glucose Calcium Magnesium 2.4 H Total Bilirubin AST ALT Alkaline Phosphatase Total Creatine Kinase CK-MB (CK-2) CK-MB (CK-2) Rel Index Troponin I 0.209 H* B-Natriuretic Peptide Total Protein Albumin Globulin Albumin/Globulin Ratio Lipase TSH Nasal Screen MRSA (PCR) Discharge Plan Discharge Plan Patient Disposition: [facility] Under care of provider: Dr. Murillo, hospitalist and Dr. Zambrano, cardiology Discharge orders & Medications Follow up/Referrals: Diogenes Beal MD [Primary Care Provider] - Diet/Activity/Treatments Diet: Nothing by Mouth Discharge Data Primary Care Provider: Diogenes Beal Attending Provider: Karen Jarrett Admit Date/Time: 06/21/19 16:58
[2019-06-22] MEDS: METOPROLOL IR 50 MG TABLET PO (12:31)
[2019-06-22 12:56] LABS: Troponin I 0.187 ng/mL (0.01-0.034)
[2019-06-22] MEDS: LORazepam 0.5 MG TABLET 0.25 MG PO (13:34)
[2019-06-22] MEDS: HEPARIN 5,000 UNIT/ML VIAL 5000 UNIT IV (13:35)
[2019-06-22 14:10] LABS: Hematocrit 48.8 % (41-53); Hemoglobin 16.7 g/dL (13.5-17.5)
[2019-06-22 14:20] LABS: Platelet Count 162 X10^3/uL (150-400)
[2019-06-22 14:21] LABS: INR 1.2 (0.9-1.3); Prothrombin Time 13.9 SECONDS (10.1-12.7)
[2019-06-22 14:24] LABS: PTT Partial Thromboplastin Tim 28 SECONDS (26.4-36.2)
--- NOTE | 2019-06-22 14:33 | CM.DPNOTE ---
Initial Discharge Planning Assessment Note: TRAFFIC SAFETY ADMINISTRATOR reviewed EMR, information obtained during team rounds, and consulted with his CHANGE MANAGEMENT FACILITATOR. PCP: Dr. Diogenes Beal. Payor: Mikey. Pt presented to the ED yesterday with chief complaints of chest pain, shortness of breath, fatigue and AFIB. His discharge today was pending the results of his echo, which ended up with poor results. He is pending transfer to [facility] for continued cardiac w/u and assessment for heart cath. Discharge Planning/Care Management CM Discharge Assessment Start: 06/22/19 14:03 Freq: Status: Active Protocol: Document 06/22/19 14:27 DPL (Rec: 06/22/19 14:33 DPL [id number]) Discharge Planning Assessment Assigned Flight Engineer Performance Qualified JEAN-PAUL Arevalo DPOA/Assigned Designee Name N/A Advance Directives? No History Provided By Significant Other Expected Length of Stay 1 Has Patient been admitted in last 30 No days? Prior Living Arrangements House Household Members significant other Type of transporation used prior to Drives own vehicle admit Independent with ADL's Yes Is patient alert and oriented? Yes Comment Pt's chief complaints at time of admission were chest pain, shortness of breath and AFIB. He continues to feel weak and SOB. Caregiver for Another No Comment N/A Comment N/A Comment Pt's d/c today was pending results of his echo, which ended up being poor. He is being transferred to [facility] for heart cath w/u. Per RN, pt is experiencing significant heart failure, which is new for him. Barriers to Discharge No Discharge Plan Transfer to Higher Level of Care Transportation Arrangement BLS Transport Additional Comment N/A
[2019-06-22] MEDS: HEPARIN DRIP 25,000 UNIT/500 ML IV.SOLN 19.512 UNIT IV (14:42)
--- NOTE | 2019-06-22 18:19 | DI.ECHO.S_ITS ---
[place] +---------+ [facility] +---------+ : : [address] : : : : [id number] : : : : Phone: [phone] Echocardiogram Report + + :Name: LEXIE HUGHES Study Date: 06/22/2019 Height: 68 in : :[facility] Weight: 179 lb : : Gender: Male BSA: 1.9 m2 : :: 1970 Age: 48 yrs BP: 125/59 mmHg: :Reason For Study: Atrial fibrillation : :Ordering Physician: Ronnell : :Hospitalist Performed By: Dorene Garner : :Referring: RYAN KUMAR : + + Interpretation Summary The left ventricle is mildly dilated. Left ventricular systolic function is severely reduced. The ejection fraction is estimated to be 15-20%. There is severe global hypokinesis of the left ventricle. Diastolic function could not be accurately assessed due to atrial fibrillation. The right ventricle is normal size. Right ventricular systolic function is moderately reduced. The right ventricular systolic pressure is estimated to be at least 41 mmHg based on an estimated right atrial pressure of 15 mm Hg. The left atrium is moderately dilated. The right atrium is mildly dilated. There is mild to moderate mitral regurgitation. There is mild to moderate tricuspid regurgitation. There is no other significant valvular heart disease. The aortic root is normal size. There are moderately large-sized bilateral pleural effusions noted. Procedure: A two-dimensional transthoracic echocardiogram with color flow and Doppler was performed. The study quality was technically good. A contrast injection of Definity was performed to improve assessment for apical thrombus. There is no prior echocardiogram noted for this patient. The patient was in atrial fibrillation with heart rates between 116-160 bpm during the exam. Left Ventricle: The left ventricle is mildly dilated. There is normal left ventricular wall thickness. There is no thrombus. Left ventricular systolic function is severely reduced. The ejection fraction is estimated to be 15-20%. There is severe global hypokinesis of the left ventricle. Diastolic function could not be accurately assessed due to atrial fibrillation. Right Ventricle: The right ventricle is normal size. Right ventricular systolic function is moderately reduced. Atria: The left atrium is moderately dilated. The right atrium is mildly dilated. There is no Doppler evidence for an interatrial shunt. Mitral Valve: There is a flat closure plane of the the mitral valve leaflets. Mitral valve leaflets are thin and pliable. There is mild to moderate mitral regurgitation. Aortic Valve: A bicuspid aortic valve cannot be excluded. There is no aortic valve stenosis. No aortic regurgitation is present. Tricuspid Valve: The tricuspid valve leaflets are thin and pliable. There is mild to moderate tricuspid regurgitation. The TR jet is eccentric. The right ventricular systolic pressure is estimated to be at least 41 mmHg based on an estimated right atrial pressure of 15 mm Hg. Pulmonic Valve: The pulmonic valve leaflets are thin and pliable; valve motion is normal. There is mild pulmonic regurgitation. There is no other significant valvular heart disease. Great Vessels: The aortic root is normal size. The ascending aorta is normal in size. The aortic arch could not be visualized. The pulmonary artery is normal size. The IVC is dilated (diameter is greater than 2.1 cm) and it collapses less than 50% with a sniff. This suggests a high right atrial pressure of 15 mm Hg. Systolic flow reversal noted in hepatic veins. Pericardium/ Pleura There is no pericardial effusion. There are moderately large-sized bilateral pleural effusions noted. MMode/2D Measurements & Calculations LVIDd: 5.9 cm LVOT diam: 1.9 cm LVIDs: 5.2 cm Ao root diam: 3.1 cm FS: 12.1 % Aortic Jxn: 2.5 cm EPSS: 2.1 cm asc Aorta Diam: 2.9 cm IVSd: 0.62 cm LVPWd: 1.0 cm LV salazar. diameter/BSA (cm/m^2): 3.0 LV sys. diameter/BSA (cm/m^2): 2.6 LA A2 area: 24.2 cm2 RA long axis: 5.3 cm LA A4 area: 25.3 cm2 RA area: 20.1 cm2 LA length (vol): 5.9 cm RA vol: 64.4 ml LA vol: 87.9 ml RA : 33.0 ml/m2 LA vol index: 45.1 ml/m2 IVC diam: 2.6 cm RVD1 (basal): 3.8 cm RVD2 (mid): 2.8 cm TAPSE: 1.0 cm Doppler Measurements & Calculations Ao V2 max: 62.6 cm/sec LVOT Max Gómez: 49.5 cm/sec Ao V2 mean: 43.8 cm/sec LV V1 max P.98 mmHg Ao max P.6 mmHg LV V1 VTI: 5.8 cm Ao mean P.86 mmHg ARSLAN(I,D): 3.0 cm2 Ao V2 VTI: 5.8 cm ARSLAN(V,D): 2.3 cm2 sev ratio: 1.0 ARSLAN indexed to BSA (cm^2/m^2): 1.5 Med Peak E' Gómez: 3.6 cm/sec TR max gómez: 254.7 cm/sec Lat Peak E' Gómez: 6.7 cm/sec TR max P.0 mmHg MVA(VTI): 2.6 cm2 PA V2 max: 45.8 cm/sec PA V2 mean: 31.5 cm/sec PA mean P.47 mmHg PA Accel Time: 0.06 sec MV V2 mean: 57.4 cm/sec SV(LVOT): 17.3 ml MV mean P.5 mmHg MV V2 VTI: 6.7 cm Reading Physician:12:39 PM
== END 2019-06-22 16:33 | disposition short-term general hospital (02) | DRG 308 ==
LOC: ED 15:01 → ICU 18:12
PROVIDERS: Internal Medicine; Admitting Provider Internal Medicine; Emergency Provider Emergency Medicine; PCP Student in an Organized Health Care Education/Training Program; Visit Provider Internal Medicine
DX: I48.91 Unspecified atrial fibrillation (principal); I50.21 Acute systolic (congestive) heart failure; I24.8 Other forms of acute ischemic heart disease; I42.8 Other cardiomyopathies; G47.33 Obstructive sleep apnea (adult) (pediatric)
CPT/HCPCS: 36415; 71045; 71275; 80051; 80053; 82550; 83690; 83735; 83880; 84443; 84484; 85014; 85018; 85025; 85049; 85379; 85610; 85730; 87797; 93005; 93306; 96361; 96374; 99285; J1160; J1644; Q9957

== ENCOUNTER → 2019-07-09 08:43 | Outpatient (CLI) | payer OTHER, SELFPAY ==
[2019-06-21 18:18] VITALS: BMI 27.2
[2019-07-09 10:16] LABS: BUN Creatinine Ratio 23.3 (6-22); Blood Urea Nitrogen 21 mg/dL (9-20); Calcium 9.5 mg/dL (8.4-10.2); Carbon Dioxide 28 mmol/L (22-32); Chloride 105 mmol/L (98-107); Estimated Glomerular Filt Rate > 60.0 mL/min (>60); Glucose 101 mg/dL (70-100); HEMOLYSIS < 15 (0-50); Magnesium 2.1 mg/dL (1.6-2.3); Potassium 4.1 mmol/L (3.4-5.1); Sodium 142 mmol/L (137-145)
== END ==
PROVIDERS: PCP Student in an Organized Health Care Education/Training Program; Visit Provider Physician Assistant
DX: I50.22 Chronic systolic (congestive) heart failure (principal)
CPT/HCPCS: 36415; 80048; 83735

== ENCOUNTER → 2020-04-07 10:58 | Outpatient (CLI) | payer OTHER, SELFPAY ==
[2019-06-21 18:18] VITALS: BMI 27.2
== END ==
PROVIDERS: PCP Student in an Organized Health Care Education/Training Program; Visit Provider Physician Assistant
DX: L03.90 Cellulitis, unspecified (principal)
CPT/HCPCS: 87070; 87077; 87147; 87186; 87205

== ENCOUNTER → 2020-10-22 17:08 | Outpatient (CLI) | payer OTHER, SELFPAY ==
[2019-06-21 18:18] VITALS: BMI 27.2
[2020-10-23 15:04] LABS: RPR Screen Non Reactive (Non Reactive)
[2020-10-24 00:03] LABS: Hepatitis B Surface Antigen NEGATIVE s/c (NEGATIVE)
[2020-10-24 00:20] LABS: HIV 1 & 2 Ab/Ag 4th Gen Combo NEGATIVE (NEGATIVE); Hep C Virus Ab w/Reflex Quant NEGATIVE s/c (NEGATIVE)
== END ==
PROVIDERS: PCP Student in an Organized Health Care Education/Training Program; Referring Provider Physician Assistant; Visit Provider Physician Assistant
DX: Z11.3 Encounter for screening for infections with a predominantly sexual mode of transmission (principal)
CPT/HCPCS: 36415; 86592; 86695; 86696; 86803; 87340; 87389; 87491; 87591